=== PATIENT | male | born 2005 | race African-American/Black ===

== ENCOUNTER 2025-02-23 00:52 | Emergency (ER) | payer SELFPAY ==
[2025-02-23 00:54] VITALS: BP 123/68; PULSE 67; RESP 14; TEMP 36.6; O2SAT 99
--- NOTE | 2025-02-23 01:36 | ED_ITS ---
HPI - General Adult General Chief complaint: Urogenital-Male Stated complaint: possible exposure to Chlamydia Time Seen by Provider: 02/23/25 01:27 History of Present Illness HPI narrative: Patient 20-year-old gentleman who presents emergency department chief complaint chlamydia exposure the patient reports he was texted by 1 of his X is who told him that she was positive for chlamydia and she get tested the patient reports no penile discharge denies burning with urination or urinary symptoms Related Data Allergies Allergy/AdvReac Type Severity Reaction Status Date / Time No Known Allergies Allergy Verified 02/23/25 00:58 Review of Systems Review of Systems: A 10 system review of systems was completed on the patient and is negative except for what is stated in the HPI. Nursing and ancillary documentation was reviewed. Exam Narrative: GENERAL: Well-appearing, well-nourished, and in no acute distress. HEAD: Normocephalic, atraumatic. EYES: PERRLA and EOMI. ENT: Nares clear, no rhinorrhea or epistaxis. Mucous membranes moist. NECK: Supple. CHEST: Clear to auscultation. No respiratory distress. HEART: Regular rate and rhythm. No murmur heard. Normal peripheral pulses. ABDOMEN: Soft, nontender, nondistended, normal active bowel sounds. EXTREMITIES: Normal range of motion. No edema. SKIN: Warm, dry, no rash. NEURO: No focal deficits. Alert and oriented x3. PSYCH: Normal mood and affect. Course Vital Signs Vital signs: Vital Signs Temperature 36.6 C 02/23/25 00:54 Pulse Rate 67 02/23/25 00:54 Respiratory Rate 14 02/23/25 00:54 Blood Pressure 123/68 02/23/25 00:54 Pulse Oximetry 99 02/23/25 00:54 Oxygen Delivery Room Air 02/23/25 00:54 Temperature 36.6 C 02/23/25 00:54 Pulse Rate 67 02/23/25 00:54 Respiratory Rate 14 02/23/25 00:54 Blood Pressure 123/68 02/23/25 00:54 Pulse Oximetry 99 02/23/25 00:54 Oxygen Delivery Room Air 02/23/25 00:54 [facility] Differential Diagnosis Differential Diagnosis: STI exposure, UTI Patient will be empirically treated with 100 mg of Rocephin and doxycycline 100 mg b.i.d. for 10 days patient should follow-up for repeat testing Lab Data [facility] Lab Attestation statement: I personally reviewed the patient's lab results. Discharge Plan Discharge Clinical Impression: Possible exposure to STI Patient Disposition: Home Condition: Stable Instructions: Antibiotic Form, Chlamydia (ED) Additional Instructions: Your provided empiric coverage for chlamydia. The test has been sent for chlamydia and gonorrhea this can take several hours to come back please check the portal for your results. If the test is negative please continue the antibiotic for its full course it is recommended that you follow-up with either your primary care provider or the health department for repeat testing Patient Language: Samoan Prescriptions: New doxycycline hyclate 100 mg tablet 100 mg PO BID Qty: 14 0RF Follow-up/Referrals: PHYSICIAN,DIRECTOR OF REGULATORY AFFAIRS [Primary Care Provider, Internal Medicine] Alvino Callahan MD [Physician, Family Practice] Time of Disposition: 01:39
[2025-02-23 01:44] LABS: Add Urine Microscopic? YES; Appearance Urine Clear (Clear); Glucose Urine UA Negative (Negative); Leukocyte Esterase Ur 1+ LEU/UL (Negative); Nitrate Urine Negative (Negative); Non Pathogenic Casts 0-2; Specific Grav Ur 1.033 (1.001-1.035)
[2025-02-23] MEDS: DOXYCYCLINE HYCLATE 100 MG TABLET PO (01:59)
[2025-02-23] MEDS: LIDOCAINE 1% LOCAL INJ 10 ML VIAL (02:00)
[2025-02-23] MEDS: cefTRIAXone 1 GM VIAL 0.5 GM IM (02:00)
[2025-02-23 02:05] VITALS: BP 118/71; PULSE 84; RESP 14; TEMP 36.7; O2SAT 99
== END 2025-02-23 02:04 | disposition home or self-care (01) ==
LOC: ANHED 01:50
PROVIDERS: Emergency Provider Emergency Medicine
DX: Z20.2 Contact with and (suspected) exposure to infections with a predominantly sexual mode of transmission (principal); Z11.3 Encounter for screening for infections with a predominantly sexual mode of transmission
CPT/HCPCS: 81001; 87086; 87491; 87591; 96372; 99283; A9270; J0696; J2003